=== PATIENT | female | born 1990 | race Caucasian/White ===

== ENCOUNTER → 2019-08-31 15:00 | Outpatient (BNVA) | payer OTHER, SELFPAY | PROVIDERS: Family Provider Nurse Practitioner Family; PCP Nurse Practitioner Family; Visit Provider Nurse Practitioner Family | DX: Z01.419 Encounter for gynecological examination (general) (routine) without abnormal findings (principal); L81.1 Chloasma; A60.00 Herpesviral infection of urogenital system, unspecified | CPT/HCPCS: 88175 ==

== ENCOUNTER → 2020-07-18 14:12 | Outpatient (BNVA) | payer OTHER, SELFPAY | PROVIDERS: Family Provider Nurse Practitioner Family; PCP Nurse Practitioner Family; Visit Provider Obstetrics & Gynecology | DX: Z11.3 Encounter for screening for infections with a predominantly sexual mode of transmission (principal); N93.9 Abnormal uterine and vaginal bleeding, unspecified; N64.4 Mastodynia; N64.52 Nipple discharge | CPT/HCPCS: 84146; 84315; 84439; 84443; 84481; 84702; 86592; 86803; 87340; 87491; 87591; 87806 ==

== ENCOUNTER 2020-07-20 07:26 | Outpatient (CLI) | payer OTHER, SELFPAY ==
--- NOTE | 2020-07-20 07:15 | US_ITS ---
WS: [id number] ULTRASOUND BREAST BILATERAL TECHNIQUE: Ultrasound bilateral breast focused area of concern. CLINICAL INFORMATION: N64.4 - Mastodynia COMPARISON: None. FINDINGS: Ultrasound bilateral breasts in the area of concern at the areola. Bilateral incidental ductal ectasi a. No evidence of cystic or solid mass. No suspicious lesions. Otherwise normal breast parenchyma lucho aterally. US/US breast BI limited* [id number] IMPRESSION: BI-RADS 2 benign FOLLOW UP: Recommend annual screening mammography age 40
== END 2020-07-20 07:27 | disposition home or self-care (01) ==
LOC: RAD 07:27
PROVIDERS: PCP Family Medicine; Visit Provider Obstetrics & Gynecology
DX: N64.4 Mastodynia (principal); N64.52 Nipple discharge
CPT/HCPCS: 76642

== ENCOUNTER → 2020-08-01 13:57 | Outpatient (BNVA) | payer OTHER, SELFPAY | PROVIDERS: PCP Family Medicine; Visit Provider Obstetrics & Gynecology | DX: N64.4 Mastodynia (principal); N64.52 Nipple discharge | CPT/HCPCS: 76830 ==

== ENCOUNTER 2021-06-11 12:58 | Outpatient (CLI) | payer OTHER, SELFPAY ==
[2021-06-11 14:17] LABS: Free T4 Free Thyroxine 0.88 ng/dL (0.82-1.77); Thyroid Stimulating Hormone 2.76 uIU/mL (0.27-4.20)
== END 2021-06-11 12:59 | disposition home or self-care (01) ==
LOC: LAB 13:01
PROVIDERS: Visit Provider Internal Medicine
DX: E03.9 Hypothyroidism, unspecified (principal)
CPT/HCPCS: 84439; 84443

== ENCOUNTER 2021-07-30 07:18 | Outpatient (CLI) | payer OTHER, SELFPAY ==
--- NOTE | 2021-07-30 08:00 | US_ITS ---
WS: [id number] THYROID ULTRASOUND HISTORY: Hx of thyroid cancer COMPARISON: None available. Right lobe: 1.7 cm x 1.8 cm x 6.0 cm (w x ap x l). Volume: 9.8 cm3. Enlarged heterogeneous gland with hypoechoic micronodules scattered throughout. Moderate increased va scularity. There is no discrete nodule. Left lobe: 1.7 cm x 1.6 cm x 4.6 cm (w x ap x l). Volume: 6.3 cm3. Enlarged heterogeneous gland with multiple hypoechoic micronodules scattered throughout. There is inc reased vascularity. Isthmus: 0.5 cm. Benign cervical chain lymph nodes. 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
== END 2021-07-30 07:19 | disposition home or self-care (01) ==
PROVIDERS: Visit Provider Internal Medicine
DX: E06.3 Autoimmune thyroiditis (principal); E01.0 Iodine-deficiency related diffuse (endemic) goiter; Z80.8 Family history of malignant neoplasm of other organs or systems
CPT/HCPCS: 76536

== ENCOUNTER 2021-08-12 14:53 | Outpatient (CLI) | payer OTHER, SELFPAY ==
[2021-08-12 15:15] LABS: Basophils % 0.7 %; Eosinophils % 0.7 %; Hematocrit 38.7 % (37.0-47.0); Hemoglobin 12.5 g/dL (11.5-15.3); Lymphocytes # 2.2 10^3/uL (0.8-4.8); Mean Corpuscular HGB Conc 32.3 g/dL (30.0-36.0); Mean Corpuscular Hemoglobin 29.1 pg (28.0-34.0); Mean Corpuscular Volume 90.2 fl (81-99); Mean Platelet Volume 10.2 fL (7.4-10.4); Monocytes # 0.4 10^3/uL (0.2-0.9); Monocytes % 6.7 %; Neutrophils # 3.18 10^3/uL (1.8-7.7); Neutrophils % 54.7 %; Nucleated Red Blood Cells % 0 %; Platelet Count 243 10^3/cmm (130-400); Red Blood Count 4.29 10^6/uL (4.1-5.3); Red Cell Distribution Width 11.8 % (12.1-15.1); White Blood Count 5.8 10^3/uL (4.0-10.0)
[2021-08-12 16:05] LABS: Free T4 Free Thyroxine 1.34 ng/dL (0.82-1.77); Thyroid Stimulating Hormone 0.73 uIU/mL (0.27-4.20)
[2021-08-14 09:48] LABS: T3 Total 95 ng/dL (76-181)
== END 2021-08-12 14:54 | disposition home or self-care (01) ==
LOC: LAB 14:56
PROVIDERS: Visit Provider Internal Medicine
DX: E03.9 Hypothyroidism, unspecified (principal); E06.3 Autoimmune thyroiditis; Z80.8 Family history of malignant neoplasm of other organs or systems
CPT/HCPCS: 36415; 84439; 84443; 84480; 85025

== ENCOUNTER 2022-04-01 14:45 | Outpatient (CLI) | payer OTHER, SELFPAY ==
[2022-04-01 15:43] LABS: Free T4 Free Thyroxine 1.18 ng/dL (0.82-1.77); Thyroid Stimulating Hormone 1.48 uIU/mL (0.27-4.20)
== END 2022-04-01 14:46 | disposition home or self-care (01) ==
LOC: LAB 14:48
PROVIDERS: Visit Provider Internal Medicine
DX: E03.9 Hypothyroidism, unspecified (principal)
CPT/HCPCS: 84439; 84443

== ENCOUNTER 2022-06-06 12:25 | Outpatient (CLI) | payer OTHER, SELFPAY ==
--- NOTE | 2022-06-06 12:45 | US_ITS ---
WS: [id number] ULTRASOUND THYROID TECHNIQUE: Ultrasound of the thyroid. CLINICAL INFORMATION: thyromegaly COMPARISON: July 10, 2021 FINDINGS: Thyroid: Enlarged RIGHT greater than LEFT heterogeneous thyroid gland with diffuse tiny hypoechoic mi cronodules similar to the prior examination. Associated increased vascularity. Findings are compatibl e with Javan's thyroiditis. No dominant nodules to target for biopsy. Right thyroid lobe: 5.7 cm x 1.9 cm x 1.9 cm RIGHT lobe volume 10.8 cc Left thyroid lobe: 3.8 cm x 1.6 cm x 1.7 cm. LEFT lobe volume 5.3 cc Isthmus: 0.4 mm. Cervical lymphadenopathy: None. US/US thyroid [id number] IMPRESSION: 1. No significant changes compared to previous. 2. Above-described findings compatible with Javan's thyroiditis 3. No dominant nodules to target for biopsy.
== END 2022-06-06 12:26 | disposition home or self-care (01) ==
LOC: RAD 12:28
PROVIDERS: Visit Provider Internal Medicine
DX: E01.0 Iodine-deficiency related diffuse (endemic) goiter (principal)
CPT/HCPCS: 76536

== ENCOUNTER 2022-08-18 13:25 | Outpatient (CLI) | payer OTHER, SELFPAY ==
[2022-08-18 18:01] LABS: Free T4 Free Thyroxine 1.59 ng/dL (0.82-1.77); Thyroid Stimulating Hormone 0.09 uIU/mL (0.27-4.20)
== END 2022-08-18 13:26 | disposition home or self-care (01) ==
LOC: LAB 13:29
PROVIDERS: PCP Family Medicine; Visit Provider Family Medicine
DX: E06.3 Autoimmune thyroiditis (principal)
CPT/HCPCS: 84439; 84443

== ENCOUNTER → 2022-10-13 14:52 | Outpatient (BNVA) | payer OTHER, SELFPAY | PROVIDERS: PCP Family Medicine; Visit Provider Family Medicine | DX: E03.9 Hypothyroidism, unspecified (principal); E06.3 Autoimmune thyroiditis; E01.0 Iodine-deficiency related diffuse (endemic) goiter | CPT/HCPCS: 84439; 84443 ==

== ENCOUNTER → 2022-11-26 16:00 | Outpatient (BNVA) | payer OTHER, SELFPAY | PROVIDERS: PCP Family Medicine; Visit Provider Nurse Practitioner Women's Health | DX: Z12.4 Encounter for screening for malignant neoplasm of cervix (principal) | CPT/HCPCS: 87624 ==

== ENCOUNTER → 2022-12-02 10:59 | Outpatient (BNVA) | payer OTHER, SELFPAY | PROVIDERS: PCP Family Medicine; Visit Provider Nurse Practitioner Women's Health | DX: R05.9 Cough, unspecified (principal); R09.81 Nasal congestion; R51.9 Headache, unspecified | CPT/HCPCS: 87426 ==

== ENCOUNTER → 2023-02-09 16:41 | Outpatient (BNVA) | payer OTHER, SELFPAY | PROVIDERS: PCP Family Medicine; Visit Provider Family Medicine | DX: E06.3 Autoimmune thyroiditis (principal) | CPT/HCPCS: 80053; 84443 ==

== ENCOUNTER 2023-04-16 15:31 | Outpatient (CLI) | payer OTHER, SELFPAY ==
[2023-04-16 16:11] LABS: Free T4 Free Thyroxine 1.62 ng/dL (0.82-1.77); Thyroid Stimulating Hormone 0.07 uIU/mL (0.27-4.20)
== END 2023-04-16 15:32 | disposition home or self-care (01) ==
LOC: ONCMED 15:32
PROVIDERS: PCP Family Medicine; Visit Provider Family Medicine
DX: E06.3 Autoimmune thyroiditis (principal)
CPT/HCPCS: 84439; 84443

== ENCOUNTER 2023-06-23 13:52 | Outpatient (CLI) | payer OTHER, SELFPAY ==
[2023-06-23 14:57] LABS: Thyroid Stimulating Hormone 1.86 uIU/mL (0.27-4.20)
== END 2023-06-23 13:53 | disposition home or self-care (01) ==
LOC: ONCMED 13:53
PROVIDERS: PCP Family Medicine; Visit Provider Family Medicine
DX: E06.3 Autoimmune thyroiditis (principal)
CPT/HCPCS: 84439; 84443

== ENCOUNTER → 2023-09-18 13:56 | Outpatient (BNVA) | payer OTHER, SELFPAY | PROVIDERS: PCP Family Medicine; Visit Provider Nurse Practitioner Women's Health | DX: N92.6 Irregular menstruation, unspecified (principal) | CPT/HCPCS: 81025 ==

== ENCOUNTER → 2023-09-29 14:21 | Outpatient (BNVA) | payer OTHER, SELFPAY | PROVIDERS: PCP Family Medicine; Visit Provider Nurse Practitioner Women's Health | DX: Z34.91 Encounter for supervision of normal pregnancy, unspecified, first trimester (principal); Z3A.10 10 weeks gestation of pregnancy | CPT/HCPCS: 76801 ==

== ENCOUNTER → 2023-10-02 07:47 | Outpatient (BNVA) | payer OTHER, SELFPAY | PROVIDERS: PCP Family Medicine; Visit Provider Nurse Practitioner Women's Health | DX: Z34.90 Encounter for supervision of normal pregnancy, unspecified, unspecified trimester (principal); Z3A.00 Weeks of gestation of pregnancy not specified; E03.8 Other specified hypothyroidism; E06.3 Autoimmune thyroiditis | CPT/HCPCS: 80307; 84315; 84443; 85025; 86592; 86762; 86803; 86850; 86900; 87086; 87340; 87806 ==

== ENCOUNTER → 2023-11-06 08:08 | Outpatient (BNVA) | payer OTHER, SELFPAY | PROVIDERS: PCP Family Medicine; Visit Provider Nurse Practitioner Women's Health | DX: Z34.80 Encounter for supervision of other normal pregnancy, unspecified trimester (principal); Z3A.00 Weeks of gestation of pregnancy not specified | CPT/HCPCS: 82105; 84315 ==

== ENCOUNTER → 2023-12-08 14:18 | Outpatient (BNVA) | payer OTHER, SELFPAY | PROVIDERS: PCP Family Medicine; Visit Provider Obstetrics & Gynecology | DX: Z34.92 Encounter for supervision of normal pregnancy, unspecified, second trimester (principal); Z3A.21 21 weeks gestation of pregnancy | CPT/HCPCS: 76805 ==

== ENCOUNTER → 2023-12-18 07:59 | Outpatient (BNVA) | payer OTHER, SELFPAY | PROVIDERS: PCP Family Medicine; Visit Provider Obstetrics & Gynecology | DX: Z34.80 Encounter for supervision of other normal pregnancy, unspecified trimester (principal) | CPT/HCPCS: 84315; 84443 ==

== ENCOUNTER → 2023-12-31 07:56 | Outpatient (BNVA) | payer OTHER, SELFPAY | PROVIDERS: PCP Family Medicine; Visit Provider Obstetrics & Gynecology | DX: Z34.80 Encounter for supervision of other normal pregnancy, unspecified trimester (principal) | CPT/HCPCS: 82950 ==

== ENCOUNTER → 2024-02-05 13:04 | Outpatient (BNVA) | payer OTHER, SELFPAY | PROVIDERS: PCP Family Medicine; Visit Provider Nurse Practitioner Women's Health | DX: O26.899 Other specified pregnancy related conditions, unspecified trimester (principal); Z67.91 Unspecified blood type, Rh negative; E03.8 Other specified hypothyroidism; E06.3 Autoimmune thyroiditis | CPT/HCPCS: 84315; 84443; 85025; 86850 ==

== ENCOUNTER → 2024-03-10 13:24 | Outpatient (BNVA) | payer OTHER, SELFPAY | PROVIDERS: PCP Family Medicine; Visit Provider Nurse Practitioner Women's Health | DX: O99.013 Anemia complicating pregnancy, third trimester (principal); O26.893 Other specified pregnancy related conditions, third trimester; Z67.91 Unspecified blood type, Rh negative | CPT/HCPCS: 84315; 85025 ==

== ENCOUNTER 2024-03-16 06:00 | Outpatient (CLI) | payer OTHER, SELFPAY ==
[2024-03-16 14:34] LABS: Ferritin 8 ng/mL (15-150); Iron 25 ug/dL (37-145); Percent Saturation 4.7 % (20-50); Total Iron Binding Capacity 523 mcg/dl; Unsaturated Iron Binding 498 ug/dL (112-347)
[2024-03-16 14:50] LABS: Vitamin B12 482 pg/mL (232-1245)
== END 2024-03-16 06:01 | disposition home or self-care (01) ==
LOC: LAB 03-23 14:16
PROVIDERS: PCP Family Medicine; Visit Provider Nurse Practitioner Women's Health
DX: O99.013 Anemia complicating pregnancy, third trimester (principal); K90.9 Intestinal malabsorption, unspecified
CPT/HCPCS: 82607; 82728; 82746; 83540; 83550

== ENCOUNTER → 2024-03-24 12:26 | Outpatient (BNVA) | payer OTHER, SELFPAY | PROVIDERS: PCP Family Medicine; Visit Provider Nurse Practitioner Women's Health | DX: Z36.9 Encounter for antenatal screening, unspecified (principal) | CPT/HCPCS: 76816; 84315; 87081 ==

== ENCOUNTER → 2024-03-31 15:56 | Outpatient (BNVA) | payer OTHER, SELFPAY | PROVIDERS: PCP Family Medicine; Visit Provider Obstetrics & Gynecology | DX: O99.013 Anemia complicating pregnancy, third trimester (principal); O26.893 Other specified pregnancy related conditions, third trimester; Z67.91 Unspecified blood type, Rh negative | CPT/HCPCS: 84315; 85025 ==

== ENCOUNTER → 2024-04-08 13:17 | Outpatient (BNVA) | payer OTHER, SELFPAY | PROVIDERS: PCP Family Medicine; Visit Provider Nurse Practitioner Women's Health | DX: Z34.80 Encounter for supervision of other normal pregnancy, unspecified trimester (principal) | CPT/HCPCS: 84315 ==

== ENCOUNTER → 2024-04-15 10:57 | Outpatient (BNVA) | payer BC, SELFPAY | PROVIDERS: PCP Family Medicine; Visit Provider Obstetrics & Gynecology | DX: Z34.80 Encounter for supervision of other normal pregnancy, unspecified trimester (principal) | CPT/HCPCS: 84315 ==

== ENCOUNTER 2024-04-21 17:00 | Outpatient (CLI) | payer BC, SELFPAY ==
[2024-04-21 17:00] VITALS: BMI 34.0
--- NOTE | 2024-04-21 17:03 | USR_ITS ---
PROCEDURE INFORMATION: Exam: US Biophysical Profile Without Non-Stress Test Exam date and time: 04/21/2024 5:23 PM Age: 34 years old Clinical indication: Other: Post dates; TECHNIQUE: Imaging protocol: US biophysical profile without non-stress testing. COMPARISON: [place] [id number] 03/24/2024 12:29 PM FINDINGS: Limitations: Limited scanning of the gravid uterus was performed. Gestation: Single fetus is identified. heart rate: 163 bpm position: Cephalic Placenta: Placenta location: Anterior Amniotic fluid index: LEYLA is 8.23 cm. BIOPHYSICAL PROFILE: breathing (BPP): 2 out of 2. gross body movement (BPP): 2 out of 2. tone (BPP): 2 out of 2. Amniotic fluid (BPP): 2 out of 2. MATERNAL ANATOMY: Cervix: Cervical length measures 3 cm. US/US OB BPP wo NST [id number] IMPRESSION: Normal biophysical profile score of 8/8.
[2024-04-21 17:09] VITALS: BP 127/80; PULSE 65
[2024-04-21 17:29] VITALS: BP 136/101; PULSE 93
[2024-04-21 17:30] VITALS: BP 129/90; PULSE 72
[2024-04-21 17:49] VITALS: BP 131/93; PULSE 73
== END 2024-04-21 18:05 | disposition home or self-care (01) ==
LOC: OPOB 17:02 → OBGYN 17:02
PROVIDERS: PCP Family Medicine; Visit Provider Obstetrics & Gynecology
DX: O48.0 Post-term pregnancy (principal); Z3A.00 Weeks of gestation of pregnancy not specified
CPT/HCPCS: 59025; 76819

== ENCOUNTER 2024-04-22 19:54 | Inpatient (IN) | payer BC, SELFPAY ==
[2024-04-22 19:54] VITALS: BMI 30.6
[2024-04-22 19:58] VITALS: BP 137/88; PULSE 66
[2024-04-22 20:12] VITALS: BP 135/86; PULSE 66
[2024-04-22 20:27] VITALS: BP 139/84; PULSE 64
--- NOTE | 2024-04-22 20:45 | PM.OPHPUD ---
Labor & Delivery H&P Update Date of Procedure: April 23, 2024 Date H&P Performed: 04/15/24 H&P update information: I have reviewed H&P completed within last 30 days, I have examined patient prior to procedure and Changes to prior documentation as noted here (Cervix: 4cm/50%/-3/VX/AROM) Admission Diagnosis: Preop diagnosis: IUP
[2024-04-22 23:02] LABS: Basophils % 0.3 %; Eosinophils % 0.3 %; Hematocrit 35.3 % (36-47); Lymphocytes # 2.4 10^3/uL (0.8-4.8); Lymphocytes % 23.5 %; Mean Corpuscular HGB Conc 33.1 g/dL (30-55); Mean Corpuscular Hemoglobin 29.3 pg (27-33); Mean Corpuscular Volume 88.3 fl (85-98); Mean Platelet Volume 11.1 fL (7.4-10.4); Monocytes # 0.6 10^3/uL (0.2-0.9); Neutrophils % 69.5 %; Nucleated Red Blood Cells % 0 %; Platelet Count 167 10^3/cmm (157-399); Red Cell Distribution Width 15.9 % (12.1-15.1); White Blood Count 10.21 10^3/uL (3.29-11.43)
[2024-04-23] VITALS (34 sets, daily range): BP systolic 104–153; BP diastolic 55–91; PULSE 62–90; RESP 15–18; TEMP 35.8–36.8; O2SAT 90–100
[2024-04-23] MEDS: lactated ringers 1,000 ML 999 ML IV (01:21)
[2024-04-23] MEDS: ondansetron 2 mg/ML SDV 2 mL 4 MG IVP (02:34)
[2024-04-23] MEDS: ROPivacaine syringe 100 MG/50 ML SYRINGE 10 MG EPIDURAL (02:40)
[2024-04-23] MEDS: dextrose 5%-sod chloride 0.45% 1,000 ML 125 ML IV (02:45)
--- NOTE | 2024-04-23 02:49 | ANES.PREANE2 ---
Pre-Anesthetic Assessment Height/Weight: Height 1.6 m Weight 78.471 kg Pulse BP Pulse Ox O2 Del Method 79 153/73 93 Room Air 04/23/24 02:41 04/23/24 02:41 04/23/24 02:38 04/22/24 22:39 Preop Diagnosis: IUP labor epidural Familial anesthetic complications: none Was Beta Ayo taken within 24 hours: N/A Was Clonidine taken within 24 hours: N/A Social No alcohol and No tobacco Exam alert, oriented x 3 and clear to auscultation bilaterally Airway Mallampati: Class II Dentition: full History/ROS No significant history except as noted Pulmonary None reported CV/HEM Anemia None reported Hepatic None reported GI Gastroesophageal Reflux Disease nausea Metabolic Thyroid Disease [facility] [place], [place]el None reported Neuropsych None reported Anesthetic Plan ASA status: 2 Anesthesia: Anesthesia Evaluation and Regional (specify below) Risk of > 500 ml blood loss (7ml/kg in children): Yes, adequate IV access and fluids planned Medications/Allergies Home Medications Medication Instructions Recorded Confirmed Last Taken Type acyclovir 400 mg tablet 400 mg PO BID #180 tabs 06/26/23 04/22/24 04/22/24 Rx PNV 153-FA 400 mcg-om3 35 mg-dha 1 tab PO DAILY 09/18/23 04/22/24 04/22/24 History 25 mg-epa 5 mg-fish oil chew tablet ( Gummies) doxylamine succinate 25 mg tablet 25 mg PO Q6H PRN Nausea And 09/18/23 04/22/24 Unknown History (Unisom (doxylamine)) Vomiting levothyroxine 125 mcg tablet 125 mcg PO DAILY #60 tabs 02/05/24 04/22/24 04/22/24 Rx ferrous sulfate 325 mg (65 mg 325 mg PO TID #90 tabs 03/17/24 04/22/24 04/22/24 Rx iron) tablet promethazine 25 mg tablet See Rx Instructions PO Q6H PRN 04/20/24 04/22/24 Unknown Rx nausea and vomiting #6 tabs Allergies Allergy/AdvReac Type Severity Reaction Status Date / Time desmopressin [From DDAVP] Allergy Unknown unknown Verified 04/22/24 22:50 sodium phosphate [From DDAVP] Allergy Unknown unknown Verified 04/22/24 22:50 Sulfa (Sulfonamide AdvReac Migraines/h Verified 04/22/24 22:50 Antibiotics) eartburn Current Medications Generic Name Dose Route Start Last Admin Trade Name Freq PRN Reason Stop Dose Admin Dextrose/Sodium Chloride 1,000 mls @ 125 mls/hr 04/22/24 22:44 04/23/24 02:45 Dextrose 5%-Sod Chloride 0.45% IV 125 mls/hr .Q8H PRN Administration labor Lactated Ringer's 1,000 mls @ 999 mls/hr 04/23/24 01:14 04/23/24 01:21 Lactated Ringers IV 999 mls/hr .Q1H1M PRN Administration See label comments Ropivacaine 100 mg in 50 mls @ 10 mls/hr 04/23/24 01:15 04/23/24 02:40 Naropin Syringe EPIDURAL 10 mls/hr .Q5H ORIN Administration Ondansetron HCl 4 mg 04/22/24 22:44 04/23/24 02:34 Ondansetron 2 Mg/Ml Sdv 2 Ml IVP 4 mg Q4H PRN Administration NAUSEA AND VOMITING PFSH Anesthesia Medical History Recurrent genital herpes Family history of thyroid cancer Javan's disease Anxiety and depression Diagnosed in 2019 when she was going to a personal hard time. Was on medication however has not been on any medication since 2021 and continues to follow-up with her therapist Hypothyroid Diagnosed at the age of 21 and was usually seen once a year by an zigzag tunnel elastic operator prior to moving here from [place] in 2016. She currently follows up with Dr. Casarez-endocrinology Surgical History History of placement of ear tubes At the age of 1. History of tonsillectomy At the age of 14 History of repair of inguinal hernia right side when she was 2 or 3 years old. She states that no mesh was used. Family History Daughter Diabetes Grandfather Diabetes maternal Heart disease maternal Hyperlipidemia maternal Family/Other Breast cancer maternal great grandmother--diagnosed after age 50 Maternal great aunt, age at diagnosis unknown Grandmother Thyroid disease maternal Heart disease maternal Hypertension maternal Cancer Maternal-thyroid Mother Thyroid disease Hyperlipidemia Other Psychiatric illness Denies family history of Ovarian cancer CAD (coronary artery disease) Clotting disorder Dementia Chronic kidney disease (CKD) Anesthesia complication Bleeding disorder Lung disease Stroke Social History Smoking and tobacco/nicotine status: never used tobacco/nicotine Female Reproductive History : 4 Data Anesthesia 04/22/24 20:00 Short CBC 04/22/24 Range/Units 20:00 WBC 10.21 (3.29-11.43) 10^3/uL Hgb 11.70 (11.27-16.99) g/dL Hct 35.3 L (36-47) % MCV 88.3 (85-98) fl Plt Count 167 (157-399) 10^3/cmm Neut % (Auto) 69.5 % Neut # (Auto) 7.10 (1.8-7.7) 10^3/uL Cardiac Studies: No Data to Display Anesthesia Procedures Epidural Time Out Performed: Yes Consents Signed: Procedure Consent Consent: requested by attending/covering physician, from patient, risks and benefits reviewed and patient agrees to proceed Lumbar Level: L4-L5 Epidural position: sitting Epidural procedure: sterile prep of area, 1% lidocaine to numb the area, 18 g needle, negative for paresthesia passed, neg for paresthesia, test dose given, 1.5% xylocaine 1:200k epi, 0.2% Ropivacaine bolus ml (5), placed PCEA, no systemic response, sterile dressing applied, L.U.D. no apparent complications and 0.2% Ropiavacaine @ mls/hr (10) Additional Comments: LILLIAM 5cm, catheter easily threaded to 5cm in the space. VS monitored throughout and remained stable. Pt educated on ACUPUNCTURE PHYSICIAN and reports decreased pain with contractions.
--- NOTE | 2024-04-23 07:04 | P.PCNOB_ITS ---
Delivery Note: Date of delivery: April 23, 2024 Pre-delivery diagnoses: Term Post-delivery diagnoses: Term delivered Procedure: Spontaneous vaginal delivery Delivering Physician: Jacky Mathews MD Estimated blood loss (mL): 300 Pre-Delivery Course: Mrs. Salinas is a 34yo female at 40+3 weeks EGA who has been receiving care from [facility]. She has been experiencing painful uterine contractions for the past 4 hours. The contractions are occurring at 7 minute intervals with approximately 30 second duration. She continues to feel movement between the contractions. She denies vaginal bleeding or rupture of membranes. LMP: 07/15/2023 Estimated date of confinement: 04/20/2024 CC: Onset of labor at term. HPI: Received appropriate care. Daily vitamins since start of care. labs have all been normal, including negative for HIV. She was found to negative for Group B Strep from screening at 36 weeks. She has gained approximately 30 lbs throughout the . She denies a history of HTN during . Glucose tolerance screening for gestational diabetes was negative. Delivery: The patient was noted to be complete and pushing, so was placed in the dorsal lithotomy position, prepped and draped in the usual sterile fashion for a vaginal delivery. Pt. Noted to have epidural anesthesia. At 0646 the patient delivered a viable term male infant weighing 3856 g with scores of 8 and 9 at one and five minutes, respectively. The vertex was delivered spontaneously over intact perineum. The patient was asked to push and the head delivered spontaneously in the EDDIE position, over an intact perineum. A nuchal cord was checked and none noted. The anterior shoulder delivered easily and the posterior shoulder followed. The remainder of the infant was easily delivered and the oropharynx and nasopharynx was bulb suctioned. The was noted to have spontaneous cry and spontaneous movement of all four extremities. The cord was clamped x 2 and cut and noted to have 2 arteries and one vein. The was passed to the mother's abdomen where nursing personnel were in attendance. Cord blood sample was then obtained. The placenta delivered intact spontaneously and the uterus was explored. 20 units of Pitocin was placed in the IV bag to firm the uterus. Examination of the cervix and vaginal vault did not reveal any lacerations. Examination of the perineum showed no lacerations. The vaginal pack was then removed. The patient tolerated this procedure well, and recovered in L&D with her in their LDR room. All sponge and needle counts were correct. Post-Delivery Status: Good and stable History History History 4 Term 3 0 Miscarriages/Ectopic 0 Living Children 3 A&P Assessment and plan (1) Term delivered: Plan observation Coding Level of Care Code Acute Code for Chg Fwd Diagnoses Term delivered O80
[2024-04-23] MEDS: ibuprofen 800 mg tablet PO ×3 (09:02→22:04)
[2024-04-23] MEDS: docusate sodium 100 mg Capsule PO ×2 (09:02→16:53)
--- NOTE | 2024-04-23 12:00 | ANE.PACU2 ---
Inpatient post-anesthesia follow up: Airway intact: Yes Vital signs: Temperature 98 F Pulse Rate 67 Respiratory Rate 15 Blood Pressure 130/90 Pulse Oximetry 96 Oxygen Delivery Me thod Room Air Oxygen Flow Rate Fraction of Inspir ed Oxygen Hydration adequate: Yes Nausea and vomiting: No Pain level: 1 Mental status: Baseline Epidural Start/End: Epidural Start Date: 04/22/24 Epidural Start Time: 02:30 Epidural End Date: 04/23/24 Epidural End Time: 07:17
[2024-04-23] MEDS: benzocaine-menthol 78 gm Canister 1 SPRAY TOPICAL (16:53)
[2024-04-23 19:53] LABS: Hematocrit 30.8 % (36-47); Mean Corpuscular HGB Conc 33.4 g/dL (30-55); Mean Corpuscular Hemoglobin 29.9 pg (27-33); Mean Corpuscular Volume 89.5 fl (85-98); Mean Platelet Volume 10.8 fL (7.4-10.4); Platelet Count 143 10^3/cmm (157-399); Red Blood Count 3.44 10^6/uL (3.85-5.65); Red Cell Distribution Width 15.9 % (12.1-15.1); White Blood Count 12.61 10^3/uL (3.29-11.43)
[2024-04-23] MEDS: ferrous sulfate EC 325 mg Tablet PO (22:04)
[2024-04-24 04:00] VITALS: BP 96/56; PULSE 68; RESP 15; TEMP 36.6; O2SAT 96
[2024-04-24] MEDS: ibuprofen 800 mg tablet PO (08:31)
[2024-04-24] MEDS: acyclovir 400 mg Tablet PO (08:31)
[2024-04-24] MEDS: PRENATAL VIT NO.130/IRON/FOLIC 1 EACH TABLET PO (08:31)
[2024-04-24] MEDS: docusate sodium 100 mg Capsule PO (08:32)
[2024-04-24 08:34] VITALS: BP 116/75; PULSE 67; RESP 16; TEMP 36.6; O2SAT 96
--- NOTE | 2024-04-24 09:47 | PM.OBGYDC ---
Discharge Providers MILL FEEDER Date of Admission: 04/22/24 19:54 Date of Discharge: 04/24/24 Attending Provider at Admission: Jacky Mathews MD Attending Provider at Discharge: Jacky Mathews MD Primary Care Provider: Amadou Royal MD Diagnoses at Discharge Discharge Diagnosis (1) Term delivered: Status: Acute Reason for Visit Reason for Visit: IOL Hospital Course Hospital Course rs. Salinas is a 34yo female at 40+3 weeks EGA who has been receiving care from [facility]. She has been experiencing painful uterine contractions for the past 4 hours. The contractions are occurring at 7 minute intervals with approximately 30 second duration. She continues to feel movement between the contractions. She denies vaginal bleeding or rupture of membranes. LMP: 07/15/2023 Estimated date of confinement: 04/20/2024 CC: Onset of labor at term. HPI: Received appropriate care. Daily vitamins since start of care. labs have all been normal, including negative for HIV. She was found to negative for Group B Strep from screening at 36 weeks. She has gained approximately 30 lbs throughout the . She denies a history of HTN during . Glucose tolerance screening for gestational diabetes was negative. rs. Salinas is a 34yo female at 40+3 weeks EGA who has been receiving care from [facility]. She has been experiencing painful uterine contractions for the past 4 hours. The contractions are occurring at 7 minute intervals with approximately 30 second duration. She continues to feel movement between the contractions. She denies vaginal bleeding or rupture of membranes. LMP: 07/15/2023 Estimated date of confinement: 04/20/2024 CC: Onset of labor at term. HPI: Received appropriate care. Daily vitamins since start of care. labs have all been normal, including negative for HIV. She was found to negative for Group B Strep from screening at 36 weeks. She has gained approximately 30 lbs throughout the . She denies a history of HTN during . Glucose tolerance screening for gestational diabetes was negative. She she progressed to have a spontaneous vaginal delivery of a full-term male Apgars 8/9 with a birthweight of 3856 g. observation was uneventful. Tolerating diet well. Ambulating without difficulty. She was counseled regarding pelvic rest for 6 weeks (no sex, no tampons, no vaginal douches). Return to the emergency room if any fever, increased bleeding or pain. Information Peripartum Data: Delivery Method: Vaginal Physical Exam Narrative: GA; alert and oriented x 3 HEENT: normal Breasts: engorged Nipples - skin intact Lungs; clear to auscultation Heart: regular rhythm, no murmurs. Abd: Appropriately tender. BS+. Uterine fundus below umbilicus. No Fundal Tenderness. Perineum: normal lochia. Extremities: no edema, no cyanosis, no tenderness. Urinary Catheter Management: Gabriel Latex: Cath Placed During This Visit: yes, but has since been removed by the nurse Reason for Continuing Indwelling Catheter: Other Urinary Catheter Date of Insertion: 04/23/24 Urinary Catheter Time of Insertion: 03:09 Date Urinary Catheter Removed: 04/23/24 Time Urinary Catheter Discontinued: 06:21 History History History 4 Term 3 0 Miscarriages/Ectopic 0 Living Children 3 Discharge Data Studies Completed and Pending Laboratory Results WBC 12.61 10^3/uL (3.29-11.43) H 04/23/24 19:37 RBC 3.44 10^6/uL (3.85-5.65) L 04/23/24 19:37 Hgb 10.30 g/dL (11.27-16.99) L 04/23/24 19:37 Hct 30.8 % (36-47) L 04/23/24 19:37 MCV 89.5 fl (85-98) 04/23/24 19:37 MCH 29.9 pg (27-33) 04/23/24 19:37 MCHC 33.4 g/dL (30-55) 04/23/24 19:37 RDW 15.9 % (12.1-15.1) H 04/23/24 19:37 Plt Count 143 10^3/cmm (157-399) L 04/23/24 19:37 MPV 10.8 fL (7.4-10.4) H 04/23/24 19:37 Neut % (Auto) 69.5 % 04/22/24 20:00 Lymph % (Auto) 23.5 % 04/22/24 20:00 [place] % (Auto) 6.0 % 04/22/24 20:00 Eos % (Auto) 0.3 % 04/22/24 20:00 Baso % (Auto) 0.3 % 04/22/24 20:00 Neut # (Auto) 7.10 10^3/uL (1.8-7.7) 04/22/24 20:00 Lymph # (Auto) 2.4 10^3/uL (0.8-4.8) 04/22/24 20:00 [place] # (Auto) 0.6 10^3/uL (0.2-0.9) 04/22/24 20:00 Eos # (Auto) 0.0 10^3/uL (0.0-0.8) 04/22/24 20:00 Baso # (Auto) 0.0 10^3/uL (0.0-0.1) 04/22/24 20:00 Nucleated RBC % (auto) 0 % 04/22/24 20:00 Nucleated RBCs # 0.0 /100WBC 04/22/24 20:00 Blood Type O Negative 04/22/24 20:00 Rho(D) Type Rh negative 04/22/24 20:00 Antibody Screen Positive 04/22/24 20:00 Antibody Identification Anti-D 04/22/24 20:00 Screen Negative (Negative) 04/23/24 19:37 Vitals Last Vital Signs Temp 98 F 04/24/24 08:34 Pulse 67 04/24/24 08:34 Resp 16 04/24/24 08:34 BP 116/75 04/24/24 08:34 Pulse Ox 96 04/24/24 08:34 O2 Del Method Room Air 04/24/24 04:00 Results Labs OB ([facility]): Obstetrics US 03/24/24 Obstetrics US/Biophysical Profile 04/21/24 Blood Type O Negative 04/22/24 Antibody Screen Positive 04/22/24 Hct 30.8 % (36-47) L 04/23/24 Hgb 10.30 g/dL (11.27-16.99) L 04/23/24 Rho(D) Type Rh negative 04/22/24 Plt Count 143 10^3/cmm (157-399) L 04/23/24 Hep Bs Antigen Non-reactive (Nonreactive) 10/02/23 Hepatitis C Antibody Non-reactive (Nonreactive) 10/02/23 Rubella IgG Antibody 217.6 IU/mL (0.0-10.0) H 10/02/23 RPR Nonreactive (Nonreactive) 10/02/23 HIV 1&2 Ab & HIV 1 Ag Non-reactive (Non-Reactiv) 10/02/23 TSH 1.73 uIU/mL (0.27-4.20) 02/05/24 Free T4 1.10 ng/dL (0.82-1.77) 06/23/23 Cystic Fibrosis Screen Carrier 10/02/23 Glucose 1 Hr 50 gm 111 mg/dL (85-140) 12/31/23 HCG, Qual Positive (Negative) H 09/18/23 Urine Opiates Screen Negative ng/mL (Negative) 10/02/23 Ur Barbiturates Screen Negative ng/mL (Negative) 10/02/23 Ur Phencyclidine Scrn Negative ng/mL (Negative) 10/02/23 Ur Amphetamines Screen Negative ng/mL (Negative) 10/02/23 U Benzodiazepines Scrn Negative ng/mL (Negative) 10/02/23 Urine Cocaine Screen Negative ng/mL (Negative) 10/02/23 U Marijuana (THC) Screen Negative ng/mL (Negative) 10/02/23 Micro Urine Specimen 10/02/23 Pap Smear Interpret See note 11/26/22 Discharge Plan Discharge Patient Disposition: Home Condition: Stable Prescriptions: New ferrous sulfate [Iron (ferrous sulfate)] 325 mg (65 mg iron) tablet 325 mg PO BID Qty: 60 0RF acetaminophen 325 mg capsule 325 mg PO Q4H PRN (Reason: fever or pain) Qty: 60 0RF docusate sodium [Colace] 100 mg capsule 100 mg PO BID Qty: 60 0RF ibuprofen 800 mg tablet 800 mg PO TID PRN (Reason: pain) Qty: 60 0RF Continued acyclovir 400 mg tablet 400 mg PO BID Qty: 180 2RF Unisom (doxylamine) 25 mg tablet 25 mg PO Q6H PRN (Reason: Nausea And Vomiting) Gummies 400 mcg-35 mg- 25 mg-5 mg tablet,chewable 1 tab PO DAILY levothyroxine 125 mcg tablet 125 mcg PO DAILY Qty: 60 4RF ferrous sulfate 325 mg (65 mg iron) tablet 325 mg PO TID Qty: 90 2RF promethazine 25 mg tablet See Rx Instructions PO Q6H PRN (Reason: nausea and vomiting) Qty: 6 0RF Rx Instructions: orally every 6 hours PRN; 1-2 tabs every 6hours prn nausea Discharge Orders: Discharge Order (Routine); Ordered 04/24/24 Ordered By: Jacky Mathews Referrals: Jacky Mathews MD [Physician] - 6 Weeks Discharge Diet: Usual diet Discharge Activity: Limit activity as instructed Patient Instructions: Caring for Your Baby (GEN), Bleeding (GEN), Vaginal Delivery (GEN), Your 's Appearance (GEN), Embolization (GEN), Opioid Safety Activity Restrictions/Additional Instructions: 1. Please call [facility] on next working day to make your appointment in 6 weeks. 2. Please stay home until you come back to the clinic on first post-hospatilization check up. 3. Please follow instructions on your medications CAREFULLY. 4. If you have abdominal incision, do not cover it unless dressing is necessary because of drainage. OK to shower, but avoid bath. Leave steri-strips until they fall off. If they are still on one week after surgery, you may remove them. 5. If you had vaginal surgery or vaginal repair, Dr. Mathews may instruct you to take SITZ bath. 6. Yellow, blood tinged odorous vaginal discharge is usually normal after hysterectomy or vaginal surgeries. 7. No SEXUAL INTERCOURSE, tampons, or douches until you are completely released from the post-operative care. 8. Avoid constipation by eating right and maybe using some Metamucil or Milk of Magnesia. 9. All prescription refills are given during the working hours. Please do no wait till it runs out. Call the clinic at [phone] before your medication runs out. The clinic will get in touch with your doctor to prescribe medications if necessary. 10. Please remain within 40 mile radius from our hospital because emergencies do happen now and then during the post-operative period. 11. If you have stairs at home, take one step at a time slowly and minimize the number of trips. It helps to stay in one floor for the next few days. No lifting except what you can lift by one hand until you are released from the post-operative care. 12. Driving is discouraged until you are well healed. It may be 3-4 weeks before you feel strong enough to drive. You should be able to turn and look through the rear window without pain and you should be able to push the brake pedal very hard without pain before you drive. No fast rules, but SAFETY should be your primary concern. DO NOT drive if you are on sedating medications such as narcotics. 13. Call the clinic (during working hours) to make urgent appointment or go to the Emergency room, if any of the following occurs: i. Vaginal bleeding becomes heavy, more than a period. ii. Incision becomes red and sore, or drains pus. iii. Your TEMPERATURE is over 100.4F or you have chill. iv. IV site becomes red and swollen (a little ``knot?? is usually OK) v. Persistent nausea and vomiting vi. Persistent constipation or diarrhea vii. Rash or allergic reaction to medications. Discharge Attestations MILL FEEDER Time Spent in Discharge Care*: greater than 30 min Coding Level of Care Code Acute Code for Chg Fwd Diagnoses Term delivered O80
[2024-04-24 11:52] VITALS: BP 130/90; PULSE 67; RESP 15; TEMP 36.6; O2SAT 96
== END 2024-04-24 11:52 | disposition home or self-care (01) | DRG 806 ==
LOC: OPOB 19:54 → OBGYN 19:54
PROVIDERS: Admitting Provider Obstetrics & Gynecology; PCP Family Medicine; Visit Provider Obstetrics & Gynecology
DX: O48.0 Post-term pregnancy (principal); O36.0930 Maternal care for other rhesus isoimmunization, third trimester, not applicable or unspecified; Z37.0 Single live birth; O98.32 Other infections with a predominantly sexual mode of transmission complicating childbirth; Z3A.40 40 weeks gestation of pregnancy; O99.02 Anemia complicating childbirth; O99.284 Endocrine, nutritional and metabolic diseases complicating childbirth; A60.00 Herpesviral infection of urogenital system, unspecified; O99.344 Other mental disorders complicating childbirth; O75.89 Other specified complications of labor and delivery; E06.3 Autoimmune thyroiditis; F41.9 Anxiety disorder, unspecified; F32.A Depression, unspecified; K21.9 Gastro-esophageal reflux disease without esophagitis; Z87.891 Personal history of nicotine dependence
CPT/HCPCS: 36415; 36430; 51702; 59409; 80503; 85025; 85027; 85460; 86850; 86870; 86900; 90384; 96372; J2405; J2795; J7120; J7799; J8499

== ENCOUNTER → 2024-06-03 09:36 | Outpatient (BNVA) | payer OTHER, SELFPAY | PROVIDERS: PCP Family Medicine; Visit Provider Obstetrics & Gynecology | DX: E03.8 Other specified hypothyroidism (principal) | CPT/HCPCS: 84443 ==

== ENCOUNTER → 2025-01-12 11:15 | Outpatient (BNVA) | payer BC, SELFPAY | PROVIDERS: PCP Family Medicine; Visit Provider Nurse Practitioner Family | DX: E03.8 Other specified hypothyroidism (principal); E06.3 Autoimmune thyroiditis | CPT/HCPCS: 80053; 84439; 84443; 84480; 85025 ==

== ENCOUNTER → 2025-03-24 11:00 | Outpatient (BNVA) | payer BC, SELFPAY | PROVIDERS: PCP Family Medicine; Visit Provider Nurse Practitioner Family | DX: E03.8 Other specified hypothyroidism (principal); E06.3 Autoimmune thyroiditis; Z34.80 Encounter for supervision of other normal pregnancy, unspecified trimester | CPT/HCPCS: 84443 ==